=== PATIENT | female | born 1965 | race Caucasian/White ===

== ENCOUNTER 2016-08-15 21:55 | Emergency (ER) | payer MEDICAID ==
[~2016-08-15] VITALS: Ht 165.1 cm; Wt 58.0 kg
[2016-08-15 21:57] VITALS: BP 195/116; PULSE 84; RESP 16; TEMP 97.6; O2SAT 100
[2016-08-16] MEDS ORDERED: METHOCARBAMOL 500 MG TAB PO ONE (01:00)
[2016-08-16] MEDS ORDERED: ACETAMINOPHEN/HYDROcodone 325 MG/5 MG TAB PO ONE (01:00)
[2016-08-16] MEDS ORDERED: DEXAMETHASONE SOD PHOS 4 MG/ML VIAL IM ONE (01:00)
--- NOTE | 2016-08-16 01:05 | PD ---
HPI Chief Complaint: Back/ Neck Pain or Injury Time Seen by Provider: 01:01 Travel History International Travel<30 days: No Contact w/Intl Traveler<30days: No Traveled to known affect area: No History of Present Illness HPI Patient comes in complaining of chronic back pain. Patient states she has a history of degenerative disc disease and arthritis in her back. Patient states she is not taking medications regularly for this. Patient states she was moved from [place] 4 days ago which is what aggravated her back. Patient states when this happened she typically goes to the emergency department to get pain shot as well as pain medication and muscle relaxer. Patient denies any direct trauma , loss change in bowel or bladder, numbness or tingling anywhere, fevers, or IV drug use. Patient states pain is aching burning like in nature and radiates to bilateral lower extremities. States this is her typical back pain. PFSH Past Medical History Musculoskeletal: Yes (chronic back pain) ?: Not Social History Alcohol Use: Yes Tobacco Use: Yes Allergies-Medications (Allergen,Severity, Reaction): Coded Allergies: Ceclor (Verified Allergy, Severe, Edema, 08/15/16) Penicillin (Verified Allergy, Severe, Anaphylaxis, 08/15/16) Tramadol (Verified Allergy, Severe, Diarrhea, 08/15/16) Reported Meds & Prescriptions Reported Meds & Active Scripts Active Diclofenac Sodium DR (Diclofenac Sodium) 75 Mg Tabdr 75 Mg PO Q12HR PRN Robaxin (Methocarbamol) 500 Mg Tab 500 Mg PO Q8HR PRN Review of Systems Except as stated in HPI: all other systems reviewed are Neg Physical Exam Narrative GENERAL: Well-developed, well nourished, in no acute distress, and non-ill appearing. SKIN: Warm and dry. HEAD: Atraumatic. Normocephalic. EYES: Pupils equal and round. EOMI. No scleral icterus. No injection or drainage. ENT: No nasal bleeding or discharge. Mucous membranes pink and moist. NECK: Trachea midline. Supple. No nuclear rigidity. RESPIRATORY: No accessory muscle use. No respiratory distress. MUSCULOSKELETAL: No obvious deformities. No clubbing. No cyanosis. No edema. Full range of motion. No display department manager midline with lumbar spine. Patient reports symptoms palpation throughout her lower back. Straight leg test negative bilaterally. NEUROLOGICAL: Awake and alert. No obvious cranial nerve deficits. Motor grossly within normal limits. Normal speech. PSYCHIATRIC: Appropriate mood and affect; insight and judgment normal. Data Data Last Documented VS Vital Signs Date Time Temp Pulse Resp B/P Pulse Ox O2 Delivery O2 Flow Rate FiO2 08/15/16 21:57 97.6 84 16 195/116 100 Room Air Orders Dexamethasone Inj (Decadron Inj) (08/16/16 01:00) Methocarbamol (Robaxin) (08/16/16 01:00) Acetamin-Hydrocod 325-5 Mg ([place] 5-325 (08/16/16 01:00) MDM Medical Decision Making Medical Screen Exam Complete: Yes Emergency Medical Condition: No Differential Diagnosis Fracture, strain, Contusion, acute on chronic back pain, other Narrative Course The patient presented complaining of back pain. There was no history of recent fall or trauma. There was no evidence to support genitourinary etiology. There is also no evidence to suggest vascular pathology such as AAA dissection. No fevers or other evidence to suspect infectious processes, abscess, osteomyelitis etc. The patients neurological exam is normal with normal motor and sensory. There is no saddle paresthesias reported and no bowel or bladder incontinence or retention. I suspect the pain is mechanical in nature. Clinical suspicion, plan of care and management was discussed with the patient. The patient was instructed to follow up with their health care provider. The patient was also instructed to return if the pain worsened, changed, or developed weakness or bowel or bladder trouble. The patient agreed with plan. Patient in no obvious distress upon re-evaluation. Patient was asked if they wanted to speak to my attending, which the patient did not wish to do at this time. Any questions/concerns in reference to patient diagnosis/condition discussed and clarified prior to patient's discharge. Reinforced sheer importance of close follow up with patient's primary physician or primary care clinic. Instructed patient to return to ED immediately, if symptoms return/ worsen. Pt showed understanding of above instructions. Further instructions and recommendations were detailed in discharge paperwork. Pt ambulated without difficulty out of ED at discharge. Diagnosis Primary Impression: Chronic back pain Qualified Code: M54.41 - Chronic low back pain with bilateral sciatica, unspecified back pain laterality Additional Impression: Elevated blood pressure reading Referrals: Bernardo Chavira MD [facility] Patient Instructions: Chronic Back Pain (ED), General Instructions, Hypertension (ED) Additional Instructions: Follow-up with your primary care physician and/or orthopedics 2-3 days for reevaluation. Take all medication as prescribed. Return to the emergency department if symptoms get worse. Med/Other Pt SpecificInfo: Prescription(s) given Scripts Diclofenac Sodium DR 75 Mg Tabdr75 Mg PO Q12HR PRN (PAIN SCALE 1 TO 10) #14 TAB Ref 0 Prov:Kristina Barrera MD 08/16/16 Methocarbamol (Robaxin)500 Mg Viz522 Mg PO Q8HR PRN (MUSCLE PAIN) #15 TAB Ref 0 Prov:Kristina Barrera MD 08/16/16 Disposition: 01 DISCHARGE HOME Condition: Stable Jaylen James Aug 16, 2016 01:05
[2016-08-16] MEDS ORDERED: ROBA500T PO (01:09)
[2016-08-16] MEDS ORDERED: DICL75TA PO (01:09)
== END 2016-08-16 01:31 | disposition home or self-care (01) ==
LOC: NEPB 21:55
DX: M54.9 Dorsalgia, unspecified (principal); G89.29 Other chronic pain; R03.0 Elevated blood-pressure reading, without diagnosis of hypertension; Z72.0 Tobacco use
CPT/HCPCS: 96372; 99283; J1100